=== PATIENT | female | born 1960 | race Caucasian/White ===

== ENCOUNTER 2018-10-06 06:48 | Observation (INO) ==
--- NOTE | 2018-10-06 07:27 | Diag Imaging Result Doc PS360 ---
EXAM: CHEST-PORTABLE INDICATION: stroke like symptoms TECHNIQUE: One view COMPARISON: 06/25/2017 FINDINGS: The lungs are grossly clear. There is no discrete pleural fluid collection or pneumothorax. The cardiomediastinal silhouette and central vasculature are grossly unremarkable. IMPRESSION: No evidence of acute pathology by plain radiograph. Electronically signed by Blake Alfred 10/06/2018 7:25 AM
--- NOTE | 2018-10-06 07:31 | Diag Imaging Result Doc PS360 ---
EXAM: CT HEAD W/O CONTRAST HISTORY: stroke-like symptoms TECHNIQUE: CT head without contrast COMPARISON: None. FINDINGS: No parenchymal hemorrhage. No epidural or subdural hematoma. No subarachnoid hemorrhage. No mass identified on this noncontrasted exam. No hydrocephalus. Near complete opacification of the right maxillary sinus. IMPRESSION: Right maxillary sinusitis. This exam was performed using automated exposure control, adjustment of mA or kV according to patient size, and/or use of iterative reconstruction technique. Electronically signed by Nile Mccormack 10/06/2018 7:29 AM
--- NOTE | 2018-10-06 07:36 | PROVIDER DOCUMENTATION ---
HPI-Neurological Disorder - General Chief Complaint: Stroke-Like Symptoms Stated Complaint: STROKE LIKE SYMPTOMS Time Seen by Provider: 10/06/18 07:10 Source: patient Allergies/Adverse Reactions: Patient Allergies Allergy/AdvReac Type Severity Reaction Status Date / Time No Known Allergies Allergy Verified 06/25/17 12:51 Home Medications: Home Medication List Medication Instructions Recorded Confirmed Last Taken Type Simvastatin [Zocor] 20 mg PO DAILY 08/23/13 06/25/17 10/02/15 06:00 History Sumatriptan [Imitrex] 25 mg PO PRN PRN 09/28/15 06/25/17 Unknown History Zolpidem [Ambien] 10 mg PO QHS 09/28/15 06/25/17 10/02/15 22:00 History Celecoxib 200 mg PO DAILY 06/25/17 06/25/17 Unknown History Esomeprazole Magnesium 20 mg PO DAILY 06/25/17 06/25/17 Unknown History Estradiol 1 tab PO DAILY 06/25/17 06/25/17 Unknown History Peg 3350/Na Sulf,Bicarb,Cl/KCl 4,000 ml PO DAILY 06/25/17 06/25/17 Unknown History [Gavilyte-G Solution] Dicyclomine [Bentyl] 20 mg PO TID AC #20 cap 07/07/18 Unknown Rx Ondansetron [Zofran Odt] 8 mg PO Q6-8H PRN PRN #10 07/07/18 Unknown Rx tab.rapdis - History of Present Illness-Neuro Nature of Presenting Problem: A 57 Y/O FEMALE PRESENTS WITH C/O WOBBLY GAIT, SLURRED SPEECH AFTER SHE WOKE UP AT 5 AM THIS MORNING. PER THE PT AND , THE PT WAS HAVING GREAT DIFFICULTY TO GET OUT OF BED AFTER SHE WOKE UP. THEN SHE HAD DIFFICULTY SPEAKING, PER HE COULD NOT UNDERSTAND WHAT SHE WAS SPEAKING AND PT HAD SAME PRESENTATION IN THE TRIAGE. THE PT WAS WOBBLY ON HER LEGS, DID NOT FALL. IN THE CT, PER NURSE PT LOST HER BALANCE TOWARDS RIGHT WHEN GETTING TRANSFERRED FROM WHEEL CHAIR TO THE CT MACHINE. PT HAS BEEN HAVING LEFT EAR PAIN AND DIZZINESS FOR PAST FEW MONTHS AND SAW DR RICE FOR IT. DENIES ANY SIMILAR SYMPTOMS TODAY OR IN PAST FEW DAYS. DENIES ANY OTHER UPPER RESPIRATORY SYMPTOMS, HEADACHE, CP, SOB, N/V/D OR ANY OTHER NEUROLOGICAL SYMPTOMS. PT WAS NORMAL WHEN SHE WENT TO SLEEP AROUND 10:30 LAST NIGHT. DENIES SMOKING, ALCOHOL AND ANY ILLICITS. Onset/Duration: reports: 1-3 hours ago Timing: reports: improving Associated Symptoms: reports: slurred speech, trouble walking. denies: short of breath, headache, decreased ability to walk or stand, fainting, dizziness, confusion, chest pain, neck/back pain, fatigue, fever/chills, insomnia, loss of consciousness, nausea, numbness in legs/feet, paresthesia, diaphoretic, ringing in ears, seizures, tingling in legs/feet, vomiting, vision changes, weakness Similar Symptoms Previously?: No Recently seen or treated by another doctor?: No Review of Systems - Adult - REVIEW OF SYSTEMS - ADULT Constitutional: denies: no symptoms reported Eyes: denies: no symptoms reported Ears, Nose, Mouth & Throat: reports: ear pain (has been having left ear pain for few months and does not have any now.). denies: no symptoms reported Cardiovascular: denies: no symptoms reported Respiratory: denies: no symptoms reported Gastrointestinal: denies: no symptoms reported Genitourinary: denies: no symptoms reported Musculoskeletal: denies: no symptoms reported Integumentary: denies: no symptoms reported Neurological: reports: see HPI, dizziness/vertigo Psychiatric: denies: no symptoms reported Endocrine: denies: no symptoms reported Hematologic/Lymphatic: denies: no symptoms reported Allergic/Immunologic: denies: no symptoms reported Past History - Adult - PAST MEDICAL HISTORY-ADULT Review of Records: reports: Old Records Reviewed, Nursing Assessment Review, Medications Reviewed, Social history reviewed & non-contributory. Cardiovascular: reports: HTN - PRIOR SURGERIES/PROCEDURES Surgical/Procedure History: reports: cholecystectomy, esophageal dilation - IMMUNIZATION STATUS Childhood Immunizations: See Nurse Assessment Flu Vaccine: See Nurse Assessment Physical Exam- Neurological - Physical Exam-Neuro Initial Vital Signs Reviewed: Yes General Appearance: appears well, alert, no apparent distress Eye Exam: bilateral eye: normal inspection, PERRL, EOMI, other (No Nystagmus) HENMT: normocephalic/atraumatic, moist mucous membranes, normal ENT inspection, TMs normal, pharynx normal Head Injury: no evidence of injury Neck: non-tender, full range of motion, supple, normal inspection. negative: carotid bruit Respiratory: lungs clear, normal breath sounds, no pleuratic chest pain, no respiratory distress, no accessory muscle use Cardiovascular: normal peripheral pulses, regular rate, rhythm, no edema, no JVD , no murmur Abdominal Exam: non tender, soft Peripheral Pulses: radial (R): 2+, radial (L): 2+ Extremity: normal range of motion, non-tender, normal inspection, no pedal edema loaders Exam: normal hearing, normal speech, PERRL, facial paresthesias. negative: abnormal eye position, abnormal pupil position, facial asymmetry, facial droop, facial weakness, gaze palsy, tongue deviation to R, tongue deviation to L Coordination/Gait: normal finger to nose Motor/Sensory: no motor deficit, no sensory deficit, no pronator drift Neurologic: loaders II-XII nml as tested, grossly normal, no motor/sensory deficits Integumentary: normal color, warm/dry Psych/Mental Status: normal mood/affect, normal thought content, normal thought process, oriented x 3 - Glascow Coma Scale Best Eye Response: (4) open spontaneously Best Verbal Response: (5) oriented Best Motor Response: (6) obeys commands Progress - PLAN OF CARE/RESULTS Progress/Plan/Lab Results: Vital Signs - 8 hr 10/06/18 06:54 10/06/18 07:10 10/06/18 07:17 Temperature 97.0 F L Pulse Rate 95 H 120 H 88 Respiratory Rate 16 31 H 26 H Blood Pressure 142/71 142/71 136/69 O2 Sat by Pulse Oximetry 100 100 100 10/06/18 08:00 10/06/18 08:02 10/06/18 08:18 Temperature Pulse Rate 88 88 90 Respiratory Rate 25 H 25 H 24 Blood Pressure 141/63 145/74 O2 Sat by Pulse Oximetry 100 99 100 10/06/18 08:32 10/06/18 08:47 10/06/18 09:00 Temperature Pulse Rate 94 H 93 H 87 Respiratory Rate 34 H 23 21 Blood Pressure 119/82 140/71 O2 Sat by Pulse Oximetry 100 99 99 10/06/18 09:02 10/06/18 09:17 10/06/18 09:32 Temperature Pulse Rate 94 H 85 86 Respiratory Rate 26 H 22 22 Blood Pressure 137/69 136/70 134/75 O2 Sat by Pulse Oximetry 99 99 100 10/06/18 09:47 10/06/18 10:00 10/06/18 10:02 Temperature 97.3 F L Pulse Rate 91 H 87 84 Respiratory Rate 21 25 H 25 H Blood Pressure 145/69 114/75 O2 Sat by Pulse Oximetry 99 100 99 Laboratory Results - last 24 hr 10/06/18 10/06/18 10/06/18 07:50 07:50 07:50 WBC 5.60 RBC 3.60 L Hgb 11.4 L Hct 33.8 L MCV 93.9 MCH 31.7 H MCHC 33.7 RDW Std Deviation 12.5 Plt Count 263 MPV 9.0 Neut % (Auto) 78.6 H Lymph % (Auto) 13.0 L Lamb % (Auto) 5.2 Eos % (Auto) 3.0 Baso % (Auto) 0.2 Neut # (Auto) 4.40 Lymph # (Auto) 0.73 L Lamb # (Auto) 0.29 Eos # (Auto) 0.17 Baso # (Auto) 0.01 PT 13.4 INR 1.01 PTT (Actin FS) 28.6 Sodium 142 Potassium 3.4 L Chloride 106 Carbon Dioxide 28 Anion Gap 8 BUN 15 Creatinine 0.6 Estimated GFR/1.73 m2 > 60 BUN/Creatinine Ratio 25 Glucose 176 H POC Glucose Estimat Average Glucose Hemoglobin A1c Calculated Osmolality 288 Calcium 9.8 Total Bilirubin 0.21 AST 15 ALT 16 Alkaline Phosphatase 62 Troponin T Total Protein 6.4 Albumin 4.0 Globulin 2.4 Albumin/Globulin Ratio 1.7 Urine Source Urine Color Urine Turbidity Urine pH Ur Specific [place] Urine Protein Ur Glucose (Stick) Ur Ketones (Stick) Urine Blood Urine Nitrite Urine Bilirubin Urobilinogen Dipstick Urine Leukocytes Urine WBC (Auto) Urine RBC (Auto) U Epithel Cells (Auto) Urine Bacteria (Auto) Urine Opiates Screen Ur Oxycodone Screen Ur Methadone, Qual Ur Barbiturates Screen Ur Phencyclidine Scrn Ur Amphetamines Screen U Benzodiazepines Scrn Urine Cocaine Screen U Cannabinoids Screen 10/06/18 10/06/18 10/06/18 07:50 07:50 08:01 WBC RBC Hgb Hct MCV MCH MCHC RDW Std Deviation Plt Count MPV Neut % (Auto) Lymph % (Auto) Lamb % (Auto) Eos % (Auto) Baso % (Auto) Neut # (Auto) Lymph # (Auto) Lamb # (Auto) Eos # (Auto) Baso # (Auto) PT INR PTT (Actin FS) Sodium Potassium Chloride Carbon Dioxide Anion Gap BUN Creatinine Estimated GFR/1.73 m2 BUN/Creatinine Ratio Glucose POC Glucose 147 H Estimat Average Glucose 111 Hemoglobin A1c 5.5 Calculated Osmolality Calcium Total Bilirubin AST ALT Alkaline Phosphatase Troponin T < 0.010 Total Protein Albumin Globulin Albumin/Globulin Ratio Urine Source Urine Color Urine Turbidity Urine pH Ur Specific [place] Urine Protein Ur Glucose (Stick) Ur Ketones (Stick) Urine Blood Urine Nitrite Urine Bilirubin Urobilinogen Dipstick Urine Leukocytes Urine WBC (Auto) Urine RBC (Auto) U Epithel Cells (Auto) Urine Bacteria (Auto) Urine Opiates Screen Ur Oxycodone Screen Ur Methadone, Qual Ur Barbiturates Screen Ur Phencyclidine Scrn Ur Amphetamines Screen U Benzodiazepines Scrn Urine Cocaine Screen U Cannabinoids Screen 10/06/18 10/06/18 08:08 08:08 WBC RBC Hgb Hct MCV MCH MCHC RDW Std Deviation Plt Count MPV Neut % (Auto) Lymph % (Auto) Lamb % (Auto) Eos % (Auto) Baso % (Auto) Neut # (Auto) Lymph # (Auto) Lamb # (Auto) Eos # (Auto) Baso # (Auto) PT INR PTT (Actin FS) Sodium Potassium Chloride Carbon Dioxide Anion Gap BUN Creatinine Estimated GFR/1.73 m2 BUN/Creatinine Ratio Glucose POC Glucose Estimat Average Glucose Hemoglobin A1c Calculated Osmolality Calcium Total Bilirubin AST ALT Alkaline Phosphatase Troponin T Total Protein Albumin Globulin Albumin/Globulin Ratio Urine Source CLEAN CATCH Urine Color YELLOW Urine Turbidity CLEAR Urine pH 6.0 Ur Specific [place] 1.013 Urine Protein NEGATIVE Ur Glucose (Stick) 300 A Ur Ketones (Stick) NEGATIVE Urine Blood TRACE A Urine Nitrite NEGATIVE Urine Bilirubin NEGATIVE Urobilinogen Dipstick NORMAL Urine Leukocytes MODERATE A Urine WBC (Auto) <10 Urine RBC (Auto) <10 U Epithel Cells (Auto) <10 Urine Bacteria (Auto) 1+ Urine Opiates Screen NONE DETECTED Ur Oxycodone Screen NONE DETECTED Ur Methadone, Qual NONE DETECTED Ur Barbiturates Screen NONE DETECTED Ur Phencyclidine Scrn NONE DETECTED Ur Amphetamines Screen NONE DETECTED U Benzodiazepines Scrn NONE DETECTED Urine Cocaine Screen NONE DETECTED U Cannabinoids Screen NONE DETECTED Orders Category Date Time Status Cardiac Monitoring DIRECTED Care 10/06/18 06:54 Active Finger Stick Blood Sugar (ED) DIRECTED Care 10/06/18 06:54 Active Saline Loc NOW Care 10/06/18 06:54 Active CHEST-PORTABLE [RAD] Stat Exams 10/06/18 06:[address] HEAD W/O CONTRAST [CT] Stat Exams 10/06/18 06:53 Completed A1C HGB W EST AVG GLUCOSE [CHEM] Stat Lab 10/06/18 07:50 Completed CBC WITH ELECTRONIC DIFF [HEME] Stat Lab 10/06/18 07:50 Completed COMPREHENSIVE METABOLIC PANEL [CHEM] Stat Lab 10/06/18 07:50 Completed PROTIME WITH INR [COAG] Stat Lab 10/06/18 07:50 Completed PTT [COAG] Stat Lab 10/06/18 07:50 Completed TROPONIN T Stat Lab 10/06/18 07:50 Completed URINALYSIS W/POSS RFLX CULT [URINALYSIS] Stat Lab 10/06/18 08:08 Completed URINE CULTURE [RM] Routine Lab 10/06/18 09:08 Received URINE DRUG SCREEN Stat Lab 10/06/18 08:08 Completed EKG [EKG] Stat Ther 10/06/18 06:54 Draft Result Diagrams: 10/06/18 07:50 10/06/18 07:50 - EKG 1 Time of EKG reading by physician:: 07:39 Rate: 86 [place]: normal QRS: normal, other (Prolonged QT) RI Interval: normal ST Wave: non-specific ST changes Comments: NSR, Non specific ST-T changes in lateral leads, no STEMI - CONSULTS/PCP/HOSPITALIST Notification #1 *Consult/PCP/Hospitalist*: D/W JOE Time Discussed: 10:33 Consult Disposition: Admit Departure - Departure Date of Disposition Decision: 10/06/18 Time of Disposition Decision: 10:36 DIAGNOSIS: TIA (transient ischemic attack), Ataxia, Dysarthria Disposition: ADMITTED INPATIENT 09 Certified Medical Emergency: Emergent Condition: Stable Referrals and Follow-Ups: Chris Chadwick MD [Primary Care Provider] - - Critical Care Note This patient required my direct & personal management of CC.: No Attestation - Physician/ SE Attestation Patient care was provided by Advanced Practice Provider:: No The physician spent face to face time with patient:: Yes Advanced Practice Provider documentation review:: Supervising physician onsite and consulted in the evaluation and care of this patient. The physician did have a face to face encounter with the patient. - NIH Stroke Scale Level of Consciousness: 0-Alert LOC Questions (ask month and age): 0-Answers Both Correctly LOC Commands (ask to open & close eyes;make a fist, let go): 0-Obeys Both Correctly Best Gaze (horizontal eye movement): 0-Normal Visual (use finger movement, counting or visual threat): 0-No Visual Loss Facial Palsy (show teeth or raise eyebrows & close eyes tght: 0-Symmetrical Movement Motor Function-left arm: 0-Normal Motor Function-right arm: 0-Normal Motor Function-left le-Normal Motor Function-right le-Normal Limb Ataxia([id number], or heel to membreno): 0-No Ataxia Sensory(pin prick to face,arms,trunk,legs-compare side/side): 0-No Ataxia Best Language(name item/read sentence.Ex-[place]): 0-No Aphasia Dysarthria(Pt read words or say words Ex.Mama,Tip-Top,Thanks: 0-Normal Articulation Extinction and Inattention: 0-Normal NIH Total Score: 0
--- NOTE | 2018-10-06 07:43 | EKG Report ---
Test Performed on : 10/06/2018 07:37:15 AM Test Reason : Stroke like symptoms Blood Pressure : / mmHG Vent. Rate : 086 BPM Atrial Rate : 086 BPM P-R Int : 164 ms QRS Dur : 082 ms QT Int : 396 ms P-R-T Axes : 066 -12 058 degrees QTc Int : 473 ms Normal sinus rhythm. Minimal voltage criteria for LVH, may be normal variant Nonspecific T wave abnormality Prolonged QT Abnormal ECG When compared with ECG of 25-JUN-2017 14:32, Nonspecific T wave abnormality now evident in Lateral leads Unconfirmed Result
[2018-10-06 08:18] LABS: BASO# 0.01 X1000 (0.0-0.2); BASO% 0.2 % (0.0-0.8); EOS# 0.17 X1000 (0.0-0.7); HEMATOCRIT 33.8 % (37.0-47.0); HEMOGLOBIN 11.4 g/dL (12.0-16.0); LYMPH# 0.73 X1000 (1.2-3.4); MCH 31.7 PG (27-31); MCHC 33.7 g/dL (33-37); MCV 93.9 FL (81-99); MONO# 0.29 X1000 (0.11-0.59); MONO% 5.2 % (1.7-9.3); NEUT% 78.6 % (42.2-75.2); PLT 263 X1000 (130-400); RDW 12.5 % (11.5-14.5)
[2018-10-06 08:23] LABS: URINE SOURCE CLEAN CATCH
[2018-10-06 08:25] LABS: INR 1.01; PROTIME 13.4 Seconds (11.0-16.0)
[2018-10-06 08:26] LABS: PTT 28.6 Seconds (22.3-41.8)
[2018-10-06 08:27] LABS: BILIRUBIN URINE NEGATIVE (NEGATIVE); BLOOD URINE TRACE (NEGATIVE); COLOR YELLOW; GLUCOSE URINE 300 mg/dL (NEGATIVE); KETONE URINE NEGATIVE (NEGATIVE); LEUKOCYTES URINE MODERATE (NEGATIVE); NITRITE URINE NEGATIVE (NEGATIVE); PROTEIN URINE NEGATIVE (NEGATIVE); SP GRAVITY URINE 1.013; TURBIDITY URINE CLEAR (CLEAR); UROBILINOGEN URINE NORMAL (NORMAL)
[2018-10-06 08:28] LABS: UR EPITHELIAL CELLS <10 /HPF (<10); URINE BACTERIA 1+ /HPF; URINE RBC <10 /HPF (<10); URINE WBC <10 /HPF (<10)
[2018-10-06 08:55] LABS: UR AMPHETAMINES QUAL NONE DETECTED (NONE DETECT); UR BARBITUATES QUAL NONE DETECTED (NONE DETECT); UR BENZODIAZEPIN QUAL NONE DETECTED (NONE DETECT); UR CANNABINOIDS QUAL NONE DETECTED (NONE DETECT); UR COCAINE QUAL NONE DETECTED (NONE DETECT); UR METHADONE QUAL NONE DETECTED (NONE DETECT); UR OPIATES QUAL NONE DETECTED (NONE DETECT); UR OXYCODONE QUAL NONE DETECTED (NONE DETECT); UR PCP QUAL NONE DETECTED (NONE DETECT)
[2018-10-06 08:56] LABS: AGAP 8; ALB/GLOB RATIO 1.7; ALKALINE PHOSPHATASE 62 U/L (32-104); BUN 15 mg/dL (8-22); CALCIUM 9.8 mg/dL (8.8-10.2); CHLORIDE 106 mmol/L (98-107); COSMO 288; CREATININE 0.6 mg/dL (0.5-0.9); ESTIMATED GFR > 60; GLUCOSE 176 mg/dL (70-104); GOT 15 U/L (10-30); GPT 16 U/L (10-36); POTASSIUM 3.4 mmol/L (3.5-5.1); SODIUM 142 mmol/L (136-145); TCO2 28 mmol/L (25-35); TOTAL BILIRUBIN 0.21 mg/dL (0.20-1.00); TOTAL PROTEIN 6.4 g/dL (6.3-8.3)
[2018-10-06 09:50] LABS: HEMOGLOBIN A1C 5.5 % (4.8-6.0)
[2018-10-06] MEDS ORDERED: TYLENOL PO PRN (10:59)
[2018-10-06] MEDS ORDERED: ZOFRAN IV PRN (10:59)
[2018-10-06] MEDS: ROCEPHIN 1 GM in NS 50 ML IV SCH (11:04)
--- NOTE | 2018-10-06 12:17 | HISTORY AND PHYSICAL ---
PRIMARY CARE PROVIDER: Dr. Chris Chadwick. CHIEF COMPLAINT: Slurred speech and generalized weakness. HISTORY OF PRESENT ILLNESS: Ms Galan is a 57-year-old female who carries a past medical history of hypertension, GERD, hyperlipidemia, who came to the ED after patient was having some generalized weakness and slurred speech. They reported around 5 a.m., the alarm clock when off, the patient was unable to cut her alarm clock off secondary to she told her that her arm was asleep. He said after several tries, she was able to get the alarm off and then she had trouble getting out of bed. She was having bilateral upper extremity weakness with garbled speech. He could barely understand her spoken word. She initially was able to get up on her own. She had tried to put pants on, she had gotten it on the right side, but was unable to get it on the left. She stood up, her balance was off, she was shuffling her feet. She remembers that both her legs felt heavy. She was having to grab a countertop in the kitchen for balance. She has reported a slight cough for over the past couple weeks. Her PCP has been trying to get her off Ambien and has switched her to another medication 2 weeks ago. She was unable to recall the name of that medication. She reports after a couple hours of being in the ED, her symptoms have seemed to resolved. She did ask her to make her pancakes this morning, which she does not remember eating. Workup in the ED with a head CT does not show anything acute. We will admit her for a full neurological workup. PAST MEDICAL HISTORY: 1. Hypertension. 2. GERD. 3. Hyperlipidemia. PAST SURGICAL HISTORY: 1. Spinal diskectomy x2 2. Cholecystectomy. 3. Bilateral tubal. 4. Hiatal hernia repair. 5. Laparoscopic fundoplication. 6. Jaw surgery. 7. Total hysterectomy. ALLERGIES: No known drug allergies. HOME MEDICATIONS: Have not been verified but she states she takes Nexium, Celebrex, propranolol, Ambien, and new medication to help her get off Ambien. SOCIAL HISTORY: She works at [employer]. She is . She has 1 child. No alcohol, tobacco, or illicit drug use. FAMILY HISTORY: Father with pancreatic cancer who is now and a grandmother with diabetes mellitus. PHYSICAL EXAMINATION: VITAL SIGNS: Temperature is 97.6 degrees, heart rate 87, respirations 17, blood pressure 163/81, O2 is 100% on room air. GENERAL: Ms. Galan is a pleasant 57-year-old female who is sitting up in the bed in no acute distress. HEENT: Atraumatic, normocephalic. PERRL. NECK: Supple. Trachea midline. CARDIOVASCULAR: S1, S2 appreciated. No murmurs, gallops, rubs noted. RESPIRATORY: Lung sounds clear bilaterally. GASTROINTESTINAL: Soft, nontender, nondistended. Positive bowel sounds x4 quadrants. EXTREMITIES: Negative for edema. NEUROLOGIC: The patient is awake, alert, oriented x4. Follows commands. Moves all extremities. Bilateral upper and lower extremity strength 5/5. Tongue is midline. Smile is symmetrical. No pronator drift. Symmetrical shoulder shrug. DIAGNOSTIC DATA: Head CT showed right maxillary sinusitis. Chest x-ray, no evidence of acute pathology. LABORATORY DATA: White count 5, hemoglobin and hematocrit 11 and 33. Sodium 142, potassium 3.4, BUN 15, creatinine 0.6, blood glucose was 176. Hemoglobin A1c 5.5. Urinalysis showed 1+ bacteria, moderate leukocytes, negative for nitrites. Toxicology screen was negative. ASSESSMENT AND PLAN: 1. Transient ischemic attack versus cerebrovascular accident. Initial head CT does not show anything acute. We will follow up with brain MRI, MRA, echocardiogram, carotid Dopplers. Continue full-dose aspirin. Continue statin. Check a lipid profile. Consult Neurology as well as Speech Therapy and Physical Therapy. Continue on a statin. 2. Questionable urinary tract infection as well as right sinusitis. We will continue with IV Rocephin for now. 3. Hypertension. Will allow for permissive hypertension for 24 hours, 220/120. 4. Gastroesophageal reflux disease. Further recommendations to follow physician evaluation, laboratory and diagnostic data. Dictated by GODFREY Rojo for Alex Ugarte MD Addendum: Patient is seen and examined by myself. Agree with GODFREY note. It reflects my assessment and plan. Patient is being admitted to hospital for TIA vs stroke. Work up on progress. If that returns positive will discharge her tomorrow. cc: MD Chris Kingsley MD Eston G. Norwood III, MD MTDD
--- NOTE | 2018-10-06 14:54 | ECHO REPORT ---
ORDER DATE: 10/06/2018 INTERPRETING PHYSICIAN: Dr. Bryson Ramirez ECHOCARDIOGRAPHIC MEASUREMENTS: Interventricular septum: 1.0 cm. Left ventricular posterior wall: 0.9 cm. Diastolic diameter: 4.6 cm. Left atrium: 3.3 cm. Aorta: 3.0 cm. SUMMARY OF THE 2-DIMENSIONAL IMAGIN. Aortic valve leaflets are trileaflet. 2. There is no aortic stenosis. There is [id number] aortic regurgitation. 3. There is mild tricuspid regurgitation. Peak velocity across the tricuspid valve less than 2 m/sec. 4. There is mild mitral regurgitation. 5. Normal left ventricular cavity size. 6. Estimated ejection fraction of 60%. 7. There is diastolic dysfunction. 8. Anterior echo free space suggestive of pericardial fat pad noted. 9. There is no pericardial effusion or obvious intracardiac mass or thrombus seen. cc: Bryson Ramirez MD
--- NOTE | 2018-10-06 15:53 | CONSULTATION ---
DATE OF CONSULTATION: 10/06/2018 REASON FOR CONSULT: Question of stroke. HISTORY OF PRESENT ILLNESS: This is a 57-year-old right-handed female with history of hypertension, hyperlipidemia, who presented this morning and for evaluation. History is from the patient. She reports she felt well last night when she went to bed. Early this morning she awoke and had an episode of which she is only able to recall pieces. She says she was having some difficulty turning off the alarm. She felt one or both of her arms may have been asleep. She then had a difficult time getting out of bed for uncertain reasons. She does not recall putting her leg in one side of her pants, she believes the right leg but then had to have assistance with the other leg. She felt wobbly and felt that she was unable to chicken picker her feet, instead wanted to slide them across the floor as she was wearing socks. Her speech was difficult to understand. Her speech was slurred during this event. Apparently she asked her to fix her some pancakes and actually had a pancake breakfast before coming into the hospital. She does not remember any of this. She then tried to get dressed to go to work apparently but her brought her to the hospital instead. Again she says she does not remember much of this event in its entirety and was able to get this history from her . She has been taking Ambien and recently switched to another medication to try to get off of the Ambien. She has had some vertiginous symptoms in the past but none like that with this event. She denies other neurologic symptoms. No headache. No loss of consciousness. She denies prior history of stroke or other major neurologic illness. PAST MEDICAL HISTORY: Includes hypertension, hyperlipidemia, GERD. PAST SURGICAL HISTORY: She has had a spinal surgery at the lumbar region, cholecystectomy, hysterectomy, right-sided knee surgery 2 months ago. FAMILY HISTORY: No strokes or seizures. SOCIAL HISTORY: She is . No alcohol tobacco or illicits. 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 ALLERGIES: No known drug allergies listed. MEDICATIONS: At home. She reported Nexium, Celebrex for her back, Ambien. The chart mentions propranolol. REVIEW OF SYSTEMS: Balance of 12 was conducted and is otherwise negative except that detailed in the HPI. PHYSICAL EXAMINATION: Vital Signs: Afebrile. Blood pressure is 114-163 systolic over 60s to 80s diastolic, pulse 80s respirations 17, 100% on room air. Ms Galan is supine in bed, awake alert oriented. Speech is fluent. Attention and concentration intact. No language disturbance. No dysarthria. Follows simple and complex commands. Left right and digit distinction preserved. Pupils equal, round, reactive. Gaze conjugate. Extraocular movements are intact. Visual winters intact to direct confrontational testing. Face symmetric with equal activation. Facial sensation reported intact. Tongue is midline. Palate elevates symmetrically. Shoulder shrug is full. No drift. Strength is symmetric and intact in the arms and legs. Sensation is intact to light touch throughout. Tone is equal in the limbs. Reflexes are trace throughout. No clonus. Plantar response is downgoing. Rapid alternating movements, and ovoq-[id number] intact. Finger to nose intact. DIAGNOSTICS: Head CT noncontrast showed right maxillary sinusitis. Normal white count, coags, sodium, BUN, creatinine. Blood glucose 140s to 170s, A1c 5.5, AST, ALT normal. Urinalysis showing 300 glucose, trace blood, moderate leukocytes 1+, bacteria. Toxicology negative. ASSESSMENT AND PLAN: Episode of memory gap apparently associated with paresthesia, weakness or clumsiness and slurred speech. Uncertain etiology. Agree with workup as you are doing. I will add a routine EEG as well given the memory gap. Thank you for this consultation. cc: Ele Ruano MD [facility]
[2018-10-06 19:40] LABS: FREE T4 1.12 ng/dL (0.93-1.70); TSH 2.05 uIUmL (0.27-4.20)
[2018-10-06] MEDS ORDERED: LIPITOR PO SCH (21:00)
[2018-10-07 06:22] LABS: BASO# 0.02 X1000 (0.0-0.2); BASO% 0.5 % (0.0-0.8); EOS# 0.24 X1000 (0.0-0.7); EOS% 6.2 % (0.0-10.0); HEMATOCRIT 35.3 % (37.0-47.0); HEMOGLOBIN 11.9 g/dL (12.0-16.0); LYMPH% 30.8 % (20.5-51.1); MCH 31.2 PG (27-31); MCHC 33.7 g/dL (33-37); MCV 92.7 FL (81-99); MONO# 0.34 X1000 (0.11-0.59); MONO% 8.7 % (1.7-9.3); MPV 9.1 FL (7.4-10.4); NEUT% 53.8 % (42.2-75.2); PLT 282 X1000 (130-400); RBC 3.81 XMIL (4.2-5.4); RDW 12.6 % (11.5-14.5)
[2018-10-07 06:40] LABS: AGAP 11; ALB/GLOB RATIO 1.3; ALBUMIN 3.5 g/dL (3.5-5.0); ALKALINE PHOSPHATASE 59 U/L (32-104); BUN 15 mg/dL (8-22); CALCIUM 9.2 mg/dL (8.8-10.2); CHLORIDE 109 mmol/L (98-107); COSMO 287; CREATININE 0.6 mg/dL (0.5-0.9); ESTIMATED GFR > 60; GLUCOSE 115 mg/dL (70-104); GOT 15 U/L (10-30); GPT 15 U/L (10-36); POTASSIUM 3.8 mmol/L (3.5-5.1); SODIUM 143 mmol/L (136-145); TCO2 23 mmol/L (25-35); TOTAL BILIRUBIN 0.36 mg/dL (0.20-1.00); TOTAL PROTEIN 6.3 g/dL (6.3-8.3)
[2018-10-07] MEDS ORDERED: ASPIRIN PO SCH (09:00)
--- NOTE | 2018-10-07 09:50 | Diag Imaging Result Doc PS360 ---
EXAM: MRI BRAIN W/WO CONTRAST INDICATION: stroke COMPARISON: CT dated 10/06/2018. No prior MRI is available for comparison. FINDINGS: There is no evidence of acute infarct. There is mild patchy T2/FLAIR hyperintensity in the periventricular and subcortical white matter suggesting mild microangiopathy. 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 There is no other discrete intracranial mass, mass effect, or intracranial hemorrhage. There is no evidence of abnormal intracranial enhancement. There is extensive right maxillary sinus mucosal disease with subtotal opacification. This was also seen on the recent CT. 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 No evidence of acute infarct or other definite acute intracranial pathology. 2.Severe right maxillary sinus mucosal disease. Electronically signed by Blake Alfred 10/07/2018 9:47 AM
--- NOTE | 2018-10-07 09:58 | Diag Imaging Result Doc PS360 ---
EXAM: MRA BRAIN W/O CONTRAST INDICATION: stroke TECHNIQUE: 3-D axial [id number] images and 3-D MIPS were obtained. COMPARISON: None. FINDINGS: The most distal segment of the left LITIGATOR appears truncated as compared to the right. This is often artifactual due to its small size of the distal branches. There is no evidence of flow-limiting stenosis, vascular malformation, or cerebral aneurysm involving the arteries comprising the [place], otherwise, including the anterior, middle, and posterior cerebral arteries. The distal ICAs and distal vertebral arteries as well as the basilar artery are widely patent. IMPRESSION: Apparent truncation of the most distal portion of the left LITIGATOR as compared to the right. Please see above discussion. Unremarkable MRA brain, otherwise. Electronically signed by Blake Alfred 10/07/2018 9:56 AM
[2018-10-07] MEDS: ROCEPHIN 1 GM in NS 50 ML IV SCH (10:54)
[2018-10-07 11:31] VITALS: BP 144/69
--- NOTE | 2018-10-07 13:34 | DISCHARGE SUMMARY ---
ADMISSION DATE: 10/06/2018 DISCHARGE DATE: 10/07/2018 CONSULTATIONS: Dr. Ele Ruano, neurology. PERTINENT PROCEDURES: 1. Initial head CT, right maxillary sinusitis. 2. Echocardiogram, EF of 60%. There is diastolic dysfunction. 3. Unremarkable MRA of the brain. 4. Brain MRI suggestive of white matter microangiopathy and an incidental pineal cyst. No evidence of acute infarct. Severe right maxillary sinus mucosal disease. 5. Carotid Dopplers are currently pending final report. DISCHARGE DIAGNOSES: 1. Transient ischemic attack versus CVA, CVA has been ruled out. She has been evaluated by neurology. They are adding a routine EEG given her memory gap. The patient is now back at her baseline without any residuals. 2. Questionable urinary tract infection as well as right-sided sinusitis. She was placed on IV Rocephin without any complaints of dysuria, cough, fever, or chills. We have discontinued any antibiotics. 3. Hypertension. Continue home medications. 4. Gastroesophageal reflux disease. Continue with PPI. HOSPITAL COURSE: Briefly, Ms. Galan is a 57-year-old female who carries a past medical history of hypertension, GERD, hyperlipidemia, came to the ED after having some generalized weakness and slurred speech around 5 in the morning on 10/06/2018. We did a full neurological workup with a head CT, echocardiogram, carotid Dopplers, brain MRI, MRA, consulted Neurology who suggested doing an EEG. All of her symptoms resolved a couple hours after being in the ER. We are pending her final carotid Doppler studies. She will be discharged back home to follow up with her primary care provider. VITAL SIGNS: At time of discharge, temperature is 98.3 degrees, heart rate 81, respirations 19, blood pressure 144/69, O2 is 100% on room air. DISCHARGE DIET: Regular. DISCHARGE MEDICATIONS: 1. Amitriptyline 100 mg p.o. at bedtime. 2. Celebrex 200 mg p.o. daily. 3. Crestor 20 mg p.o. daily. 4. Estradiol 1 tab p.o. daily. 5. Magnesium 30 mg p.o. daily. 6. Methocarbamol 750 mg p.o. at bedtime. 7. Nexium 20 mg p.o. daily. 8. Potassium 1 tab p.o. daily. 9. Vitamin D 5000 units p.o. daily. 10. Aspirin 325 mg p.o. daily. FOLLOWUP: Ms. Galan is being discharged back home with self care. She is to follow up with her primary care provider, Dr. Chris Chadwick, within the next 2 weeks. She can return to the ED or call 911 for any worsening of symptoms. Dictated by GODFREY Rojo for Alex Ugarte MD Addendum: Patient seen and examined by myself. Agree with GODFREY note. It reflects my assessment and plan. Patient is being discharged in stable condition. Will be seen by PCP in a week. cc: MD Chris Kingsley MD [facility]
--- NOTE | 2018-10-07 15:41 | EEG REPORT ---
DATE: 10/06/2018 REQUESTING PHYSICIAN: Ele Ruano MD FLEECER: Tyesha Lozano BACKGROUND INFORMATION AND TECHNIQUE: This is a digitally recorded routine EEG with video. HISTORY: A 57-year-old female with an episode of transient altered awareness with associated slurred speech and weakness. EEG is ordered to detect evidence of seizures. EEG FINDINGS: A moderately well-formed 11 hertz posterior dominant alpha rhythm is seen symmetrically in the occipital regions and attenuates with eye opening. The anterior background consists of mixed alpha and beta range frequencies. No definite persistent focal slowing. No epileptiform discharges. No seizures. Hyperventilation induces mild diffuse physiologic slowing. Photic stimulation induces a normal driving response. The patient becomes drowsy but stage II sleep is not seen. EKG demonstrates regular RR intervals. IMPRESSION AND CLINICAL CORRELATION: Normal routine EEG in the awake and drowsy states. Of note, a normal EEG does not rule out epilepsy. Clinical correlation is recommended. cc: Ele Ruano MD
--- NOTE | 2018-10-09 13:09 | Carotid Study ---
DATE: 10/06/2018 PROCEDURE: Bilateral carotid duplex. REQUESTING PHYSICIAN: GODFREY Awan INTERPRETING PHYSICIAN: Pawel La MD SUBMERSIBLE PILOT: George Shaffer RVT INDICATION: TIA. FINDINGS: Velocity is normal throughout. There is no significant atherosclerotic changes with antegrade vertebrals bilaterally. SUMMARY: No significant atherosclerotic lesions noted in the bilateral carotid artery systems. cc: Pawel La MD
== END 2018-10-07 13:38 | disposition home or self-care (01) | DRG 69 ==
LOC: ED 06:48 → INTOOBSV 06:49 → 3N 06:49
PROVIDERS: ATTEND Internal Medicine